=== PATIENT | female | born 2000 | race Caucasian/White ===

== ENCOUNTER 2020-05-04 19:42 | Outpatient (CLI) | payer OTHER | END 2020-05-05 00:25 | disposition home or self-care (01) | LOC: GENOP 19:42 | DX: O09.93 Supervision of high risk pregnancy, unspecified, third trimester (principal) | CPT/HCPCS: 81001; G0463 ==

== ENCOUNTER 2020-05-13 02:20 | Inpatient (IN) | payer OTHER ==
[~2020-05-13] VITALS: Ht 170.2 cm; Wt 60.3 kg
[2020-05-13 03:29] LABS: RED BLOOD COUNT 3.35 M/UL (4.00-5.10); WHITE BLOOD COUNT 14.4 K/UL (4.5-11.0)
[2020-05-13] MEDS ORDERED: IBUPROFEN600 MG PO (14:36)
[2020-05-13] MEDS ORDERED: DOCUSATE SODIU100 MG PO (14:36)
[2020-05-14 03:29] LABS: HEMOGLOBIN 9.6 gm/dl (12.3-15.3)
== END 2020-05-14 15:30 | disposition home or self-care (01) | DRG 807 ==
LOC: GENOP 02:20 → OB 03:10
PROVIDERS: Obstetrics & Gynecology; ADMIT Obstetrics & Gynecology
PROC: 10E0XZZ Delivery of Products of Conception, External Approach (ICD-10-PCS; principal; 2020-05-13)
PROC: 4A1HX4Z Monitoring of Products of Conception, Cardiac Electrical Activity, External Approach (ICD-10-PCS; 2020-05-13)
DX: O80 Encounter for full-term uncomplicated delivery (principal); Z37.0 Single live birth; Z3A.37 37 weeks gestation of pregnancy; Z20.822 Contact with and (suspected) exposure to COVID-19; Z88.2 Allergy status to sulfonamides
CPT/HCPCS: 36415; 51702; 81001; 82800; 83518; 85014; 85018; 85025; J2590; J7120; U0002